=== PATIENT | female | born 1995 | race African-American/Black ===

== ENCOUNTER 2023-10-25 20:13 | Observation (INO) | payer MEDICAID ==
[2023-10-25 20:58] LABS: Basophils # (auto) 0 10 ^3/uL (0-0.2); Basophils % (auto) 0.2 % (0.0-2.0); Eosinophils # (auto) 0.2 10 ^3/uL (0-0.8); Eosinophils % (auto) 2.4 % (0.0-7.0); Hemoglobin 10.7 g/dL (12.2-16.2); Lymphocytes # (auto) 2.5 10 ^3/uL (0.4-5.4); Lymphocytes % (auto) 24.3 % (10.0-50.0); Mean Corpuscular Hemoglobin 30.5 pg (28.0-32.0); Mean Corpuscular Hgb Conc. 33.4 g/dL (32.0-36.0); Mean Corpuscular Volume 91.2 fL (80.0-100.0); Monocytes # (auto) 0.7 10 ^3/uL (0-1.3); Neutrophils # (auto) 6.7 10 ^3/uL (1.6-8.6); Neutrophils % (auto) 66.1 % (37.0-80.0); Red Cell Distribution Width 14.3 % (11.8-14.3); White Blood Cell 10.1 10^3/uL (4.4-10.8)
[2023-10-25 21:16] LABS: Albumin 3.7 g/dL (3.2-4.8); Alkaline Phosphatase 74 U/L (46-116); Anion Gap 7 (5-15); Aspartate Aminotransferase 10 U/L (13-40); BUN/Creatinine Ratio 8.5 (10.0-20.0); Bilirubin, Total 0.2 mg/dL (0.2-1.0); Blood Urea Nitrogen 6 mg/dL (9-23); Calcium 8.5 mg/dL (8.7-10.4); Carbon Dioxide 20 mmol/L (20-30); Chloride 110 mmol/L (98-107); Glucose 84 mg/dL (74-106); Potassium 3.2 mmol/L (3.5-5.1); Sodium 137 mmol/L (136-145); Total Protein 6.1 g/dL (5.7-8.2); Uric Acid 3.1 mg/dL (3.1-7.8)
[2023-10-25 21:20] LABS: Alanine Aminotransferase < 9 U/L (7-40)
[2023-10-25 22:10] LABS: Protein, Urine 13.9 mg/dL (0.0-11.9)
[2023-10-25 22:13] LABS: Amphetamine Screen, Urine Neg (NEGATIVE); Barbiturate Scree,Urine Neg (NEGATIVE); Benzodiazephine Screen, Urine Neg (NEGATIVE); Cannabinoid Screen, Urine Neg (NEGATIVE); Cocaine Screen, Urine Neg (NEGATIVE); Creatinine, Urine 116.95 mg/dL (30.0-125.0); Opiate Scree,Urine Neg (NEGATIVE); Phencyclidine Screen, Urine Neg (NEGATIVE); Urine Protein/Creatinine Ratio 0.12
[2023-10-25] MEDS ORDERED: POTASSIUM CHL 20 Meq TABLET PO ONE (22:45)
[2023-10-25 22:56] LABS: Urine Epithelial Cast None Seen /hpf (<5)
[2023-10-25 23:08] LABS: Urine Bacteria FEW /hpf (None Seen); Urine Blood Negative /uL (Negative); Urine Clarity Clear (Clear); Urine Color Colorless (Yellow); Urine Protein, UAD Negative (Negative); Urine Specific Gravity 1.016 (1.001-1.035); Urine Urobilinogen Normal (Negative); Urine WBC 3 /hpf (0 - 5); Urine pH 6.5 (5.0-8.0)
[2023-10-27] MEDS ORDERED: PREN1TAB71 OR (15:51)
== END 2023-10-26 00:11 | disposition home or self-care (01) ==
LOC: LDRP 20:13
PROVIDERS: ADMIT Obstetrics & Gynecology; ATTEND Obstetrics & Gynecology
DX: O13.3 Gestational [pregnancy-induced] hypertension without significant proteinuria, third trimester (principal); O99.353 Diseases of the nervous system complicating pregnancy, third trimester; O26.893 Other specified pregnancy related conditions, third trimester; O99.333 Smoking (tobacco) complicating pregnancy, third trimester; G43.909 Migraine, unspecified, not intractable, without status migrainosus; R10.9 Unspecified abdominal pain; H53.8 Other visual disturbances; F17.210 Nicotine dependence, cigarettes, uncomplicated; Z3A.34 34 weeks gestation of pregnancy; Z79.899 Other long term (current) drug therapy
CPT/HCPCS: 36415; 59025; 76818; 80053; 80307; 81001; 81002; 82570; 84156; 84550; 85025; 94760; G0378

== ENCOUNTER 2023-10-27 15:35 | Observation (INO) | payer MEDICAID ==
[~2023-10-27] VITALS: Ht 167.6 cm; Wt 113.9 kg
[2023-10-27] MEDS ORDERED: PREN1TAB71 OR (15:51)
[2023-10-27 16:43] LABS: Urine Bacteria MOD /hpf (None Seen); Urine Blood Negative /uL (Negative); Urine Clarity Clear (Clear); Urine Color Colorless (Yellow); Urine Protein, UAD Negative (Negative); Urine Specific Gravity 1.013 (1.001-1.035); Urine Urobilinogen Normal (Negative); Urine WBC 2 /hpf (0 - 5); Urine pH 6.5 (5.0-8.0)
[2023-10-27 16:53] LABS: Protein, Urine 7.7 mg/dL (0.0-11.9)
[2023-10-27 16:56] LABS: Creatinine, Urine 60.44 mg/dL (30.0-125.0); Urine Protein/Creatinine Ratio 0.13
[2023-10-27 19:00] LABS: 24 Hr. Total Protein, Urine 115.5 mg/24 Hr (<149.1)
== END 2023-10-27 17:02 | disposition home or self-care (01) ==
LOC: UNDOADMOB 15:35 → LDRP 15:35
PROVIDERS: ADMIT Obstetrics & Gynecology; ATTEND Obstetrics & Gynecology
DX: O13.3 Gestational [pregnancy-induced] hypertension without significant proteinuria, third trimester (principal); O99.333 Smoking (tobacco) complicating pregnancy, third trimester; F17.290 Nicotine dependence, other tobacco product, uncomplicated; Z3A.34 34 weeks gestation of pregnancy
CPT/HCPCS: 59025; 81001; 81002; 82570; 84156; 94760; G0378

== ENCOUNTER 2023-11-13 09:01 | Observation (INO) | payer MEDICAID ==
[~2023-11-13 09:01] MED LIST: PREN1TAB71 OR
[2023-11-13 10:48] LABS: Urine Bacteria FEW /hpf (None Seen); Urine Blood Negative /uL (Negative); Urine Clarity Clear (Clear); Urine Color Yellow (Yellow); Urine Protein, UAD TRACE (Negative); Urine Specific Gravity 1.019 (1.001-1.035); Urine Urobilinogen Normal (Negative); Urine WBC 4 /hpf (0 - 5); Urine pH 6.5 (5.0-8.0)
[2023-11-13 10:55] LABS: Fern Testing Negative
== END 2023-11-13 11:54 | disposition home or self-care (01) ==
LOC: LDRP 09:01
PROVIDERS: ADMIT Obstetrics & Gynecology; ATTEND Obstetrics & Gynecology
DX: O42.913 Preterm premature rupture of membranes, unspecified as to length of time between rupture and onset of labor, third trimester (principal); O99.333 Smoking (tobacco) complicating pregnancy, third trimester; F17.290 Nicotine dependence, other tobacco product, uncomplicated; Z3A.36 36 weeks gestation of pregnancy
CPT/HCPCS: 59025; 76818; 81001; 81002; 84112; 94760; G0378; Q0114

== ENCOUNTER 2023-11-27 10:34 | Inpatient (IN) | payer MEDICAID ==
[~2023-11-27] VITALS: Ht 167.6 cm; Wt 113.9 kg
[2023-11-27] MEDS ORDERED: BUTORPHANOL TARTRATE 2 MG/1 ML VIAL IV PRN ×2 (10:45)
[2023-11-27 11:32] LABS: Basophils # (auto) 0 10 ^3/uL (0-0.2); Basophils % (auto) 0.1 % (0.0-2.0); Eosinophils # (auto) 0.1 10 ^3/uL (0-0.8); Eosinophils % (auto) 1.5 % (0.0-7.0); Hematocrit 32.4 % (36.0-46.0); Hemoglobin 10.6 g/dL (12.2-16.2); Lymphocytes # (auto) 1.7 10 ^3/uL (0.4-5.4); Lymphocytes % (auto) 20.3 % (10.0-50.0); Mean Corpuscular Hemoglobin 29.2 pg (28.0-32.0); Mean Corpuscular Hgb Conc. 32.8 g/dL (32.0-36.0); Mean Corpuscular Volume 89.1 fL (80.0-100.0); Monocytes # (auto) 0.5 10 ^3/uL (0-1.3); Monocytes % (auto) 6.3 % (0.0-12.0); Neutrophils # (auto) 5.9 10 ^3/uL (1.6-8.6); Neutrophils % (auto) 71.8 % (37.0-80.0); Nucleated Red Blood Cells % 0.1 %; Red Blood Cells 3.64 10^6/uL (4.0-5.20); Red Cell Distribution Width 14.7 % (11.8-14.3); White Blood Cell 8.3 10^3/uL (4.4-10.8)
[2023-11-27 11:45] LABS: Urine Bacteria MOD /hpf (None Seen); Urine Blood Negative /uL (Negative); Urine Clarity HAZY (Clear); Urine Color Yellow (Yellow); Urine Protein, UAD TRACE (Negative); Urine Urobilinogen Normal (Negative); Urine WBC 8 /hpf (0 - 5); Urine pH 6.5 (5.0-8.0)
[2023-11-27 11:50] LABS: Amphetamine Screen, Urine Neg (NEGATIVE); Barbiturate Scree,Urine Neg (NEGATIVE); Benzodiazephine Screen, Urine Neg (NEGATIVE); Cannabinoid Screen, Urine Neg (NEGATIVE); Cocaine Screen, Urine Neg (NEGATIVE); Creatinine, Urine 163.79 mg/dL (30.0-125.0); Opiate Scree,Urine Neg (NEGATIVE); Phencyclidine Screen, Urine Neg (NEGATIVE); Urine Protein/Creatinine Ratio 0.19
[2023-11-27 11:52] LABS: Alanine Aminotransferase 10 U/L (7-40); Alkaline Phosphatase 112 U/L (46-116); Calcium 8.3 mg/dL (8.7-10.4); Carbon Dioxide 18 mmol/L (20-30); Chloride 111 mmol/L (98-107); Glucose 80 mg/dL (74-106); Potassium 3.3 mmol/L (3.5-5.1)
[2023-11-27 11:53] LABS: Albumin 3.8 g/dL (3.2-4.8); Anion Gap 9 (5-15); Aspartate Aminotransferase 14 U/L (13-40); BUN/Creatinine Ratio 8.6 (10.0-20.0); Bilirubin, Total 0.4 mg/dL (0.2-1.0); Blood Urea Nitrogen < 5 mg/dL (9-23); Sodium 138 mmol/L (136-145); Total Protein 6.2 g/dL (5.7-8.2); Uric Acid 3.5 mg/dL (3.1-7.8)
[2023-11-27 11:58] LABS: INR 0.96 (0.9-1.15); Partial Thromboplastin Time 29.2 SEC (24.5-34.5); Prothrombin Time 10.1 sec (9.3-11.8)
[2023-11-27] MEDS: LACTATED RINGER'S 1,000 ML IV SCH (14:04)
[2023-11-27] MEDS ORDERED: PENICILLIN G POTASSIUM 2,500,000 UNITS in D5W 5% 50 ML IV SCH (14:45)
[2023-11-27] MEDS: PENICILLIN G POT 5MIL/D5 50ML 50 ML IV ONE (14:46)
[2023-11-27] MEDS: miSOPROStol 50 MCG per PRE-CUT 1/2 TAB PO PRN (15:00)
[2023-11-27] MEDS: POTASSIUM CHL 20 Meq TABLET PO ONE (15:10)
[2023-11-27] MEDS: PENICILLIN G POTASSIUM 2,500,000 UNITS in D5W 5% 50 ML IV SCH (18:50)
[2023-11-27] MEDS: ONDANSETRON HCL 4 MG/2 ML VIAL ONE (19:39)
[2023-11-27] MEDS: ONDANSETRON HCL 4 MG/2 ML VIAL IV PRN (19:39)
[2023-11-28] MEDS ORDERED: LACT. RINGERS/OXYTOCIN 20UNITS 1,000 ML IV SCH (02:30)
[2023-11-28] MEDS ORDERED: TERBUTALINE SULFATE 1 MG/ML 1ML VIAL SC PRN (02:30)
[2023-11-28] MEDS: LACT. RINGERS/OXYTOCIN 20UNITS 500 ML IV ONE ×2 (03:45→04:34)
[2023-11-28] MEDS: LIDOCAINE 2%HCL (LOCAL ANESTH.) INJ 20ML MDV IJ PRN (04:35)
[2023-11-28] MEDS ORDERED: ACETAMINOPHEN 325 MG TAB PO PRN (05:30)
[2023-11-28] MEDS ORDERED: ONDANSETRON HCL 4 MG/2 ML VIAL IV PRN (05:30)
[2023-11-28] MEDS: PHISODERM TOP SOLN 240ML BTL TOP PRN (05:53)
[2023-11-28] MEDS: WITCH HAZEL-GLYCERIN PAD TOP PRN (05:53)
[2023-11-28] MEDS: DERMOPLAST 60ML BOTTLE TOP PRN (05:53)
[2023-11-28] MEDS: IBUPROFEN 600 MG TAB PO PRN (06:20)
[2023-11-28 07:00] VITALS: PULSE 90; RESP 18; O2SAT 97
[2023-11-28 08:36] VITALS: BP 111/53; PULSE 90; RESP 18; TEMP 98.9; O2SAT 97
[2023-11-28 10:30] VITALS: BP 98/63; PULSE 88; RESP 16; TEMP 97.5; O2SAT 95
[2023-11-28 15:02] VITALS: BP 125/67; PULSE 81; RESP 16; TEMP 98.4; O2SAT 100
[2023-11-28 19:00] VITALS: BP 107/70; PULSE 81; RESP 20; TEMP 98.8; O2SAT 96
[2023-11-28] MEDS: DOCUSATE SOD 100 MG CAP PO SCH (22:26)
[2023-11-28 23:00] VITALS: BP 112/74; PULSE 84; RESP 16; TEMP 97.8; O2SAT 96
[2023-11-29 03:04] VITALS: BP 110/76; PULSE 76; RESP 18; TEMP 97.9; O2SAT 96
[2023-11-29] MEDS ORDERED: MEASLES, MUMPS & RUBELLA VAC(MMRII) 0.5ML SC ONE (04:15)
[2023-11-29] MEDS ORDERED: IBU600T PO (06:16)
[2023-11-29 06:50] VITALS: RESP 16
[2023-11-29 06:55] VITALS: BP 119/67; PULSE 67; RESP 16; TEMP 97.8; O2SAT 95
[2023-11-29 07:06] LABS: RPR Non Reactive (Non Reactive)
[2023-11-29 10:29] VITALS: TEMP 36.6
[2023-11-29 10:52] VITALS: BP 106/61; PULSE 84; RESP 18; TEMP 97.7; O2SAT 94
[2023-11-30 19:06] LABS: Treponema pallidum Ab (FTA-Ab) Non Reactive (Non Reactive)
== END 2023-11-29 11:40 | disposition home or self-care (01) | DRG 560 ==
LOC: LDRP 10:34 → UNDOADMIN 10:34 → LDRP 10:42
PROVIDERS: ADMIT Obstetrics & Gynecology; ATTEND Obstetrics & Gynecology
PROC: 10E0XZZ Delivery of Products of Conception, External Approach (ICD-10-PCS; principal; 2023-11-28)
PROC: 0HQ9XZZ Repair Perineum Skin, External Approach (ICD-10-PCS; 2023-11-28)
DX: O13.4 Gestational [pregnancy-induced] hypertension without significant proteinuria, complicating childbirth (principal); Z37.0 Single live birth; O70.0 First degree perineal laceration during delivery; Z3A.39 39 weeks gestation of pregnancy
CPT/HCPCS: 36415; 59025; 59409; 76815; 80053; 80307; 81001; 81002; 82570; 84156; 84550; 85025; 85610; 85730; 86592; 86703; 86850; 86900; 86901; 87340; 94760; 96360; 96361; 96365; 96366; G0378; J2405; J2540; J2590; J7060